=== PATIENT | female | born 1970 | race Caucasian/White ===

== ENCOUNTER → 2017-03-27 | Outpatient (CLI) | payer OTHER ==
[~2017-03-27] MED LIST: AMIT-106 PO; AMIT-108 PO; AMOX-559 PO; BENZ200C15 PO; BUPR-472 PO; CLAR-13 PO; DEXADRINE PO; DICL100G39 TOP; DULO30CA6 PO; DULO60CA7 PO; IBU600 PO; MUPI15CR2 TP; PANT40TA65 PO; PER PO; SER50 PO; ZOLP-358 PO
[2017-03-27 09:58] LABS: PLATELET COUNT, AUTOMATED 406 K/uL (150-450)
[2017-03-27 10:37] LABS: INR 0.94
== END ==
LOC: LAB 09:16
PROVIDERS: ATTEND Nurse Practitioner Family
DX: R04.0 Epistaxis (principal)
CPT/HCPCS: 36415; 82728; 83540; 83550; 85025; 85610; 85651; 86140

== ENCOUNTER → 2017-03-30 | Outpatient (CLI) | payer OTHER ==
[~2017-03-30] MED LIST changes: +IOPAMIDOL 76% 75 ML INFUS BTL 75 ML ONE; +NS 0.9% 20 ML SDV 60 ML ONE
--- NOTE | 2017-03-30 12:49 | RADIOLOGY IMAGING REPORT ---
[place] [facility] [place] NAME: Perez Srivastava : 1970 MR: [id number] V: [id number] EXAM DATE: ORDERING PHYSICIAN: DON PELAYO TECHNOLOGIST: Location: [facility] [place] Patient: Perez Srivatsava : 1970 Visit/Account:[id number] Date of Sevice: 03/30/2017 SINUSES W W/O CONTRAST COMPARISONS: None ADDITIONAL PERTINENT HISTORY: None. TECHNIQUE: Multiple axial images were obtained through the paranasal sinuses with coronal and sagitta l reformatted images. Study was performed before and after IV contrast was administered. One of the following dose optimization techniques was utilized in the performance of this exam: Automated exposu re control; adjustment of the mA and/or kV according to the patient's size; or use of an iterative r econstruction technique. Specific details can be referenced in the facility's radiology CT exam oper ational policy. Contrast: 75 mL of Isovue-370 FINDINGS: Maxillary sinuses: Severe lobular mucosal thickening involving the right maxillary sinus.. Frontal sinuses: Negative. Ethmoid air cells: Negative. Sphenoid sinuses:Negative. Nasal septum: Nasal septal deviation to the right measuring 4 mm.. Drainage pathways: Patent Paranasal variance: Moderate sized left-sided Ayan cell. Moderate sized left-sided kel bullosa. Medial orbital peralta, cribriform plate, and orbital floors: Negative. Visualized bony skull base Negative. Visualized intracranial contents: Negative. Orbits and surrounding soft tissues: Negative. IMPRESSION: 1. Nonobstructive paranasal sinus disease involving the right maxillary sinus. 2. Nasal septal deviation to the right. 3. Paranasal variants as detailed above. Report Dictated By: Guru Concepcion MD at 03/30/2017 12:41 PM Report E-Signed By: Guru Concepcion MD at 03/30/2017 12:45 PM WSN:[id number]
== END ==
LOC: CT 02:03
PROVIDERS: ATTEND Nurse Practitioner Family
DX: J32.8 Other chronic sinusitis (principal); J34.2 Deviated nasal septum
CPT/HCPCS: 70488; J7050; Q9967

== ENCOUNTER 2017-06-29 02:29 | Day surgery (SDC) | payer OTHER ==
[~2017-06-29] VITALS: Ht 172.7 cm; Wt 103.9 kg
[~2017-06-29 02:29] MED LIST changes: +CHOL10005 PO; +DULO60CA56 PO; -IOPAMIDOL 76% 75 ML INFUS BTL 75 ML ONE; +LEVO750T27 PO; +MONT10TA PO; -NS 0.9% 20 ML SDV 60 ML ONE
[2017-06-29] MEDS ORDERED: LIDOCAINE/SOD BICARB 8.4% SYR ID ONE (07:40)
[2017-06-29] MEDS ORDERED: NORMOSOL R SOLN(*) 1000 ML BAG 1,000 ML IV PRN (07:40)
[2017-06-29] MEDS ORDERED: MIDAZOLAM 2 MG/2 ML VIAL IVP PRN (07:40)
[2017-06-29] MEDS ORDERED: ceFAZolin(*) 2GM/D5W 50ML 50 ML IVPB ONE (07:40)
[2017-06-29 07:51] VITALS: BP 104/71
[2017-06-29] MEDS ORDERED: BACITRACIN OINT 15 GM TUBE TP ONE (08:17)
[2017-06-29] MEDS ORDERED: LIDO/EPI 1% MDV 1:100,000 20ML INFIL ONE (08:17)
[2017-06-29] MEDS ORDERED: MUPIROCIN 2% OINT 22 GM TUBE TP ONE (08:18)
[2017-06-29] MEDS ORDERED: NS(*) 0.9% 100 ML BAG 0 ML ONE (08:19)
[2017-06-29] MEDS ORDERED: OXYMETAZOLINE SPRAY 15 ML BTL ONE (08:19)
[2017-06-29] MEDS ORDERED: NS(*) 0.9% 500 ML BAG 500 ML ONE (08:20)
[2017-06-29] MEDS ORDERED: PROPOFOL EMUL(*) 10MG/ML 20 ML 40 ML ONE (08:43)
[2017-06-29] MEDS ORDERED: fentaNYL CITR 100 MCG/2 ML AMP ONE ×3 (08:43→10:04)
[2017-06-29] MEDS ORDERED: DEXAMETHASONE SOD PHOS 10MG/ML ONE (08:43)
[2017-06-29] MEDS ORDERED: ONDANSETRON 4 MG/2 ML VIAL ONE (08:43)
[2017-06-29] MEDS ORDERED: LIDOCAINE MPF 1% 5 ML VIAL ONE (08:43)
[2017-06-29] MEDS ORDERED: NS(*) 0.9% 250 ML BAG 250 ML ONE (08:49)
[2017-06-29] MEDS ORDERED: METOPROLOL TART 5 MG/5 ML VIAL ONE (09:44)
[2017-06-29] MEDS ORDERED: HYDR-4308 PO (09:59)
[2017-06-29] MEDS ORDERED: CEFU500T10 PO (10:00)
[2017-06-29] MEDS ORDERED: LR(*) 1000 ML BAG 1,000 ML ONE (10:05)
[2017-06-29] MEDS ORDERED: LABETALOL HCL 100 MG/20ML VIAL ONE (10:12)
[2017-06-29 10:36] VITALS: BP 124/92
[2017-06-29 11:07] VITALS: BP 147/94
[2017-06-29] MEDS ORDERED: APAP/HYDROCODONE 325/5 TAB PO ONE (11:15)
[2017-06-29] MEDS ORDERED: MORPHINE 2 MG/ML SYR IVP ONE (11:15)
[2017-06-29 11:36] VITALS: BP 146/96
[2017-06-29 11:58] VITALS: BP 141/100
[2017-06-29 12:00] VITALS: BP 133/100
--- NOTE | 2017-06-30 04:35 | OPERATIVE REPORT 1 ---
EVENT DATE: June 29, 2017 SURGEON: Nguyễn Sears MD ANESTHESIOLOGIST: Lex Kiran MD ANESTHESIA: LMA PROCEDURE 1. Septoplasty. 2. Submucosal resection of the bilateral inferior turbinates. PREOPERATIVE DIAGNOSIS 1. Nasal septal deviation. 2. Bilateral inferior turbinate hypertrophy. POSTOPERATIVE DIAGNOSIS 1. Nasal septal deviation. 2. Bilateral inferior turbinate hypertrophy. INDICATIONS Please refer to the preoperative note. DESCRIPTION OF PROCEDURE The patient was positively identified in the preoperative area. She was accompanied there by her . Risks again explained, including but not limited to bleeding, infection, nasal septal perforation and those associated with anesthesia. She acknowledged understanding of those risks. She was then brought back to the operative suite, laid supine on the operative table and anesthesia was administered. Once asleep, the patient was positioned, then prepped and draped in usual sterile fashion. I initially decongested the nose by injecting approximately 10 mL of 1% lidocaine with epinephrine into the bilateral anterior nasal septal mucosa and along the face of the bilateral inferior turbinates. Both nasal cavities were subsequently packed with cottonoids containing Afrin solution. These were subsequently removed. A nasal endoscopy was performed. This was notable for a right nasal septal deviation and a left inferior septal spur. A Ferny incision was then made in the left anterior nasal septal mucosa. A subperichondrial flap was elevated. An incision was then made into the anterior nasal septal cartilage approximately 5 mm posterior to the original Ferny incision. A contralateral flap was raised. The deviated portion of the patient's nasal septal cartilage and bone were then removed. The Ferny incision was reapproximated with interrupted chromic stitch. I then addressed the inferior turbinates. A stab incision was made at the face of the left inferior turbinate. Caudal elevator was utilized to elevate the mucosa off the underlying bone. A submucosal resection was then performed with the turbinate blade of the microdebrider. A stab incision was cauterized with suction Bovie electrocautery. The contralateral inferior turbinate was addressed in a similar fashion. Bilateral nasal septal splints were then placed and secured to the columella with a suture. The patient was then turned to anesthesia for emergence. ESTIMATED BLOOD LOSS 25 mL. COMPLICATIONS No complications. MTDD
[2017-07-01] MEDS ORDERED: ZOLP-358 PO (16:24)
== END 2017-06-29 10:35 | disposition home or self-care (01) ==
LOC: OR 02:29
PROVIDERS: ATTEND Otolaryngology
DX: J34.2 Deviated nasal septum (principal); J34.3 Hypertrophy of nasal turbinates
CPT/HCPCS: 30140; 30520; J1100; J2001; J2270; J2405; J2704; J3010; J3490; J7040; J7050; J0690

== ENCOUNTER → 2018-02-05 | Outpatient (CLI) | payer OTHER ==
[~2018-02-05] MED LIST changes: +CEFU500T10 PO; +HYDR-654 PO; +PRED20TA6 PO
[2018-02-05 09:27] LABS: PLATELET COUNT, AUTOMATED 319 K/uL (150-450)
[2018-02-05 09:56] LABS: LDL CHOLESTEROL 98 mg/dl
== END ==
LOC: LAB 09:16
PROVIDERS: ATTEND Nurse Practitioner Family
DX: Z00.00 Encounter for general adult medical examination without abnormal findings (principal); Z79.899 Other long term (current) drug therapy; M79.7 Fibromyalgia
CPT/HCPCS: 36415; 82040; 82247; 82310; 82374; 82435; 82465; 82565; 82947; 83718; 84075; 84132; 84155; 84295; 84443; 84450; 84460; 84478; 84520; 85025

== ENCOUNTER → 2018-09-10 | Outpatient (REF) | payer OTHER ==
[~2018-09-10] MED LIST changes: +PROL80 PO
[2018-09-10 10:55] LABS: PLATELET COUNT, AUTOMATED 240 K/uL (150-450)
== END ==
PROVIDERS: ATTEND Nurse Practitioner Family
DX: R50.9 Fever, unspecified (principal); R11.2 Nausea with vomiting, unspecified; R10.9 Unspecified abdominal pain
CPT/HCPCS: 82040; 82247; 82310; 82374; 82435; 82565; 82947; 84075; 84132; 84155; 84295; 84450; 84460; 84520; 85007; 85027